=== PATIENT | male | born 1950 | race Caucasian/White ===

== ENCOUNTER 2018-12-17 13:06 | Emergency (ER) | payer MEDICARE ==
[~2018-12-17] VITALS: Ht 167.6 cm; Wt 65.8 kg
[2018-12-17] MEDS ORDERED: PANT40 PO (13:29)
[2018-12-17 13:49] LABS: BASOPHILS ABSOLUTE AUTO 0.02 K/mm3 (0.00-0.23); BASOPHILS PERCENT AUTO 0 % (0-2); EOSINOPHILS ABSOLUTE AUTO 0.11 K/mm3 (0.00-0.68); EOSINOPHILS PERCENT AUTO 2 % (0-6); Hematocrit 42.1 % (37.0-53.0); Hemoglobin 14.1 g/dL (13.5-17.5); IMMATURE GRAN ABSOLUTE AUTO 0.02 K/mm3 (0.00-0.10); IMMATURE GRAN PERCENT AUTO 0 % (0-1); LYMPHOCYTES ABSOLUTE AUTO 0.91 K/mm3 (0.84-5.20); LYMPHOCYTES PERCENT AUTO 14 % (21-46); MONOCYTES ABSOLUTE AUTO 0.81 K/mm3 (0.16-1.47); MONOCYTES PERCENT AUTO 12 % (4-13); Mean Corpuscular HGB 29.7 pg (26.0-34.0); Mean Corpuscular HGB Conc 33.5 g/dL (31.5-36.5); Mean Corpuscular Volume 89 fL (80-100); Mean Platelet Volume 8.8 fL (9.1-12.4); NEUTROPHILS ABSOLUTE AUTO 4.64 K/mm3 (1.96-9.15); NEUTROPHILS PERCENT AUTO 71 % (41-73); Platelet Count 258 K/mm3 (150-400); RDW Coefficient Variation 12.9 % (11.7-14.2); RDW Standard Deviation 42.4 fL (35.1-46.3); Red Blood Cell Count 4.74 M/mm3 (4.30-5.90); White Blood Cell Count 6.51 K/mm3 (4.00-11.30)
[2018-12-17 14:24] LABS: Alanine Aminotransfer (ALT/SGP 25 U/L (12-78); Albumin, Blood 3.6 g/dL (3.4-5.0); Albumin/Globulin Ratio 0.9 (0.8-1.8); Alk Phos 38 U/L (50-136); Anion Gap 8 mmol/L (6-16); Aspartate Aminotrans (AST/SGOT 18 U/L (12-37); Bilirubin, Total 0.3 mg/dL (0.1-1.0); Blood Urea Nitrogen 10 mg/dL (8-24); Bun/Creatinine Ratio 14.7 (12.0-20.0); CO2, Blood 25 mmol/L (21-32); Calcium, Blood 8.6 mg/dL (8.5-10.1); Chloride, Blood 105 mmol/L (98-108); Creatinine, Blood 0.68 mg/dL (0.60-1.20); Globulin, Blood 3.9 g/dL (2.2-4.0); Glomerular Filtration Rate >60 (60-); Glucose, Blood 93 mg/dL (70-99); Potassium, Blood 4.2 mmol/L (3.5-5.5); Sodium, Blood 138 mmol/L (136-145); Total Protein, Blood 7.5 g/dL (6.4-8.2)
== END 2018-12-17 15:09 | disposition home or self-care (01) ==
LOC: ER 13:06
PROVIDERS: Emergency Medicine
DX: R42 Dizziness and giddiness (principal); H74.91 Unspecified disorder of right middle ear and mastoid
CPT/HCPCS: 70450; 80053; 85025; 99284-25

== ENCOUNTER 2020-07-09 11:01 | Day surgery (SDC) | payer MEDICARE ==
[~2020-07-09] VITALS: Ht 167.6 cm; Wt 67.6 kg
[~2020-07-09 11:01] MED LIST: ATOR20 PO; Aspir 8181 MG PO; OMEP20ER PO; PANT40 PO
== END 2020-07-09 12:25 | disposition home or self-care (01) ==
LOC: ORSCSDS 11:01
PROVIDERS: Student in an Organized Health Care Education/Training Program
PROC: 0DB58ZX Excision of Esophagus, Via Natural or Artificial Opening Endoscopic, Diagnostic (ICD-10-PCS; principal; 2020-07-09 13:30)
PROC: 0DB98ZX Excision of Duodenum, Via Natural or Artificial Opening Endoscopic, Diagnostic (ICD-10-PCS; principal; 2020-07-09 13:30)
PROC: 0DB78ZX Excision of Stomach, Pylorus, Via Natural or Artificial Opening Endoscopic, Diagnostic (ICD-10-PCS; principal; 2020-07-09 13:30)
DX: R13.10 Dysphagia, unspecified (principal); K21.9 Gastro-esophageal reflux disease without esophagitis; K44.9 Diaphragmatic hernia without obstruction or gangrene; K29.70 Gastritis, unspecified, without bleeding; Z86.73 Personal history of transient ischemic attack (TIA), and cerebral infarction without residual deficits; Z86.718 Personal history of other venous thrombosis and embolism; Z79.01 Long term (current) use of anticoagulants; Z87.891 Personal history of nicotine dependence; I48.0 Paroxysmal atrial fibrillation; E78.00 Pure hypercholesterolemia, unspecified; Z79.899 Other long term (current) drug therapy
CPT/HCPCS: J2001; J2704; J7120

== ENCOUNTER 2020-07-14 12:06 | Observation (INO) | payer MEDICARE ==
[~2020-07-14] VITALS: Ht 167.6 cm; Wt 65.7 kg
[2020-07-14 17:16] LABS: International Normalized Ratio 1.02; Prothrombin Time Results 10.9 Sec (9.7-11.5)
--- NOTE | 2020-07-14 17:20 | NUR ---
Pt to SDS for foreign body with anes. Pt hx of recent stroke, unable to answer questions appropriately, but does point to arm band when asked name and date. Unable to swallow secretions, frequently spitting.
--- NOTE | 2020-07-14 17:20 | NUR ---
History, Chart, Medications and Allergies reviewed before start of procedure. Pre-Op teaching done. Pt verbalizes understanding.
--- NOTE | 2020-07-14 17:50 | NUR ---
07/14/20 [id number] Mora Christei MAC CASE WITH DR. FAN
--- NOTE | 2020-07-14 20:14 | NUR ---
PATIENT IS A NEW ADMIT ON DAY SHIFT BEFORE SHIFT CHANGE. PATIENT AXO X4 AND INDEPENDENT. EXPRESSIVE ASPHAGIA. SPOUSE PRESENT AT SHIFT CHANGE AND DAY RN REPORTS PATIENT CAME FROM SURGERY. TELEMETRY PLACED AND TECH REPORTS NSR 70. NS STARTED AT 75 mL/HR. PATIENT RESTING IN BED WATCHING TV. ON ROOM AIR. DENIES PAIN, SOB, AND N/V. CALL LIGHT IN REACH.
--- NOTE | 2020-07-14 23:10 | NUR ---
RT NOTIFIED ABOUT CONTINUOUS PULSE OXIMETRY ORDER.
--- NOTE | 2020-07-15 03:44 | NUR ---
SHIFT SUMMARY PATIENT HAD NO ACUTE CHANGES OBSERVED. AXOX 4 WITH EXPRESSIVE ASPHAGIA. INDEPENDENT IN ROOM,. RT IN TO SETUP CONTINUOUS PULSE OXIMETRY STATING 93% ON ROOM AIR. PATIENT BACK FROM SURGERY RIGHT BEFORE SHIFT CHANGE. POST OP VITALS TAKEN. NPO TO FULL LIQUID DIET IN AM. DENIES PAIN, SOB, AND N/V. PIV REMAINS INTACT. NS INFUSING AT 75mL/HR X ONE BAG. SPOUSE PRESENT AT SHIFT CHANGE. CALL LIGHT IN REACH. BED IN LOWEST POSITION. WILL CONTINUE TO MONITOR UNTIL DAY SHIFT NURSE ASSUMES CARE.
[2020-07-15] MEDS ORDERED: ONDA4ODT MM (10:48)
--- NOTE | 2020-07-15 11:46 | NUR ---
review d'c. aware needs to make f/u appts w/ pcp and gi. name put on follow up list. aware has one med at pharmacy. answer all questions. no s/s infection w/iv d'c. in w/c w/volunteer to pov and adult female
== END 2020-07-15 11:48 | disposition home or self-care (01) ==
LOC: ER 12:06 → MEDS 12:07 → ER 17:09 → MEDS 17:09 → ENPENDDIS 07-15 11:07 → MEDS 07-15 11:48
PROVIDERS: Student in an Organized Health Care Education/Training Program; ADMIT Internal Medicine
PROC: 0DC58ZZ Extirpation of Matter from Esophagus, Via Natural or Artificial Opening Endoscopic (ICD-10-PCS; principal; 2020-07-14 16:00)
DX: T18.128A Food in esophagus causing other injury, initial encounter (principal); K21.9 Gastro-esophageal reflux disease without esophagitis; E78.5 Hyperlipidemia, unspecified; Z79.01 Long term (current) use of anticoagulants; I69.320 Aphasia following cerebral infarction; I69.390 Apraxia following cerebral infarction; Z20.828 Contact with and (suspected) exposure to other viral communicable diseases; Z88.6 Allergy status to analgesic agent; Z79.899 Other long term (current) drug therapy
CPT/HCPCS: 85610; 92610; 96372; 96374; 99284; C9113; G0378; J1610; J1650; J2704; J7030; J7120; U0002

== ENCOUNTER 2021-02-05 10:07 | Emergency (ER) | payer OTHER ==
[~2021-02-05] VITALS: Ht 162.6 cm; Wt 63.5 kg
[~2021-02-05 10:07] MED LIST changes: +ONDA4ODT MM
[2021-02-05 11:44] LABS: BASOPHILS ABSOLUTE AUTO 0.04 K/mm3 (0.00-0.23); BASOPHILS PERCENT AUTO 1 % (0-2); EOSINOPHILS ABSOLUTE AUTO 0.04 K/mm3 (0.00-0.68); EOSINOPHILS PERCENT AUTO 1 % (0-6); Hematocrit 42.1 % (37.0-53.0); Hemoglobin 13.8 g/dL (13.5-17.5); IMMATURE GRAN ABSOLUTE AUTO 0.01 K/mm3 (0.00-0.10); IMMATURE GRAN PERCENT AUTO 0 % (0-1); LYMPHOCYTES ABSOLUTE AUTO 0.81 K/mm3 (0.84-5.20); LYMPHOCYTES PERCENT AUTO 15 % (21-46); MONOCYTES PERCENT AUTO 14 % (4-13); Mean Corpuscular HGB 28.5 pg (26.0-34.0); Mean Corpuscular HGB Conc 32.8 g/dL (31.5-36.5); Mean Corpuscular Volume 87 fL (80-100); Mean Platelet Volume 9.3 fL (9.1-12.4); NEUTROPHILS ABSOLUTE AUTO 3.85 K/mm3 (1.96-9.15); NEUTROPHILS PERCENT AUTO 69 % (41-73); Platelet Count 273 K/mm3 (150-400); RDW Coefficient Variation 13.9 % (11.7-14.2); RDW Standard Deviation 44.7 fL (35.1-46.3); Red Blood Cell Count 4.84 M/mm3 (4.30-5.90); White Blood Cell Count 5.55 K/mm3 (4.00-11.30)
[2021-02-05 12:10] LABS: Alanine Aminotransfer (ALT/SGP 31 U/L (12-78); Albumin, Blood 3.6 g/dL (3.4-5.0); Alk Phos 69 U/L (50-136); Anion Gap 5 mmol/L (6-16); Aspartate Aminotrans (AST/SGOT 23 U/L (12-37); Blood Urea Nitrogen 10 mg/dL (8-24); Bun/Creatinine Ratio 14.2 (12.0-20.0); CO2, Blood 26 mmol/L (21-32); Calcium, Blood 8.6 mg/dL (8.5-10.1); Chloride, Blood 105 mmol/L (98-108); Creatinine, Blood 0.71 mg/dL (0.60-1.20); Globulin, Blood 3.6 g/dL (2.2-4.0); Glomerular Filtration Rate >60 (60-); Glucose, Blood 94 mg/dL (70-99); Potassium, Blood 4.3 mmol/L (3.5-5.5); Sodium, Blood 136 mmol/L (136-145); Total Protein, Blood 7.2 g/dL (6.4-8.2); Troponin I <0.015 ng/mL (0.000-0.040)
[2021-02-05] MEDS ORDERED: MECL25 PO (13:01)
== END 2021-02-05 13:30 | disposition home or self-care (01) ==
LOC: ER 10:07
PROVIDERS: Emergency Medicine
DX: R42 Dizziness and giddiness (principal); Z79.82 Long term (current) use of aspirin; Z79.899 Other long term (current) drug therapy; Z86.73 Personal history of transient ischemic attack (TIA), and cerebral infarction without residual deficits
CPT/HCPCS: 70450; 80053; 84484; 85025; 93005; 93010; 99284-25; A9270

== ENCOUNTER 2021-03-23 21:10 | Emergency (ER) | payer OTHER ==
[~2021-03-23] VITALS: Ht 162.6 cm; Wt 68.0 kg
[~2021-03-23 21:10] MED LIST changes: +MECL25 PO
--- NOTE | 2021-03-23 23:07 | NUR ---
PT TRANSFERED TO [facility]IA [facility] FROM ER. History, Chart, Medications and Allergies reviewed before start of procedure. Lungs clear T/O to Auscultation. Patient States Post-Procedure ride home has been arranged.
[2021-03-23 23:09] LABS: SARS-Cov-2 (COVID-19) PCR, MMC NEGATIVE (NEGATIVE)
--- NOTE | 2021-03-23 23:35 | NUR ---
03/23/21 [id number] DARREL WHITMAN History, Chart, Medications and Allergies reviewed before start of procedure. 3-LEAD EKG REVIEWED WITH PHYSICIAN PRIOR TO START OF PROCEDURE. O2 VIA INTUBATION THROUGHOUT SEDATION/PROCEDURE. MONITOR INTACT WITH CONTINUOUS PULSE OXIMETRY AND INTERMITTENT BP. GENERAL ANESTHESIA WITH DR. FONTAINE.
--- NOTE | 2021-03-24 00:05 | NUR ---
HAILEY ROJO CHARTED PACU WITH PACU TRAINED HAILEY ALLISON WALKING HER THROUGH IT.
--- NOTE | 2021-03-24 00:54 | NUR ---
LATE ENTRY 0041 PT MEETS CRITERIA FOR D/C. Patient up to Ambulate independently. Gait steady. Discharge instructions reviewed with patient. Patient verbalizes understanding. Copy given to patient to take home. Discharged via wheelchair to private car for ride home.
== END 2021-03-23 22:48 | disposition other institution (70) ==
LOC: ER 21:10
PROVIDERS: Emergency Medicine
DX: R09.89 Other specified symptoms and signs involving the circulatory and respiratory systems (principal); Z86.73 Personal history of transient ischemic attack (TIA), and cerebral infarction without residual deficits; Z87.891 Personal history of nicotine dependence; Z20.822 Contact with and (suspected) exposure to COVID-19
CPT/HCPCS: 96374-59; 99284-25; A9270; J1100; J1610; J2405; J2704; J3010; J7120; U0004

== ENCOUNTER 2021-05-12 20:46 | Emergency (ER) | payer OTHER ==
[~2021-05-12] VITALS: Ht 167.6 cm; Wt 65.8 kg
== END 2021-05-13 04:35 | disposition short-term general hospital (02) ==
LOC: ER 20:46
DX: T18.128A Food in esophagus causing other injury, initial encounter (principal); Z79.899 Other long term (current) drug therapy; Z87.891 Personal history of nicotine dependence; Z86.73 Personal history of transient ischemic attack (TIA), and cerebral infarction without residual deficits
CPT/HCPCS: 36415; 96374; 99284; A9270; J1610

== ENCOUNTER 2022-06-01 06:17 | Day surgery (SDC) | payer OTHER ==
[~2022-06-01] VITALS: Ht 167.6 cm; Wt 65.0 kg
[~2022-06-01 06:17] MED LIST changes: +WARF6 PO
--- NOTE | 2022-06-01 07:40 | NUR ---
LOOP RECORDER REMOVED FROM L LOWER STERNAL AREA BY DR GALEANO. PT TOLERATED PROCEDURE WELL. CHEST DRSG CDI ON D/C. PT AND VERBALIZED UNDERSTANDING OF WRITTEN AND VERBAL D/C INST. PT AMB OUT OF THE [facility]ENTER /S DIFFICULTY.
== END 2022-06-01 07:30 | disposition home or self-care (01) ==
LOC: MHTC 06:17
DX: Z45.09 Encounter for adjustment and management of other cardiac device (principal); I48.0 Paroxysmal atrial fibrillation; Z79.01 Long term (current) use of anticoagulants; Z86.73 Personal history of transient ischemic attack (TIA), and cerebral infarction without residual deficits
CPT/HCPCS: 33286

== ENCOUNTER → 2024-09-06 | Outpatient (CLI) | payer OTHER ==
[~2024-09-06] MED LIST changes: +CYCL10 PO; +GABA100 PO
[2024-09-06 13:58] LABS: U Amphetamine Screen Not Detected; U Barbituate Screen Not Detected; U Benzodiazapine Screen Not Detected; U Buprenorphine Screen Not Detected; U Cannabinoids Screen Not Detected; U Cocaine Screen Not Detected; U Methadone Screen Not Detected; U Methamphetamine Screen Not Detected; U Opiates Screen Not Detected; U Oxycodone Screen Not Detected; U Phencyclidine Screen Not Detected
== END | disposition home or self-care (01) ==
LOC: LAB SHORT 11:45 → LAB 11:45
PROVIDERS: Family Medicine
DX: G89.4 Chronic pain syndrome (principal)

== ENCOUNTER 2024-10-25 20:29 | Emergency (ER) | payer OTHER ==
[~2024-10-25] VITALS: Ht 172.7 cm; Wt 68.5 kg
[2024-10-25 22:55] LABS: International Normalized Ratio 2.17; Prothrombin Time Results 21.9 Sec (9.7-11.5)
[2024-10-25 23:40] VITALS: BP 141/92
== END 2024-10-26 00:17 | disposition home or self-care (01) ==
LOC: ER 20:29
PROVIDERS: Student in an Organized Health Care Education/Training Program
DX: S01.01XA Laceration without foreign body of scalp, initial encounter (principal); W01.0XXA Fall on same level from slipping, tripping and stumbling without subsequent striking against object, initial encounter; E78.5 Hyperlipidemia, unspecified; Z87.891 Personal history of nicotine dependence; Z79.01 Long term (current) use of anticoagulants; Z79.899 Other long term (current) drug therapy; Z88.6 Allergy status to analgesic agent
CPT/HCPCS: 12001; 70450; 85610; 99284-25

== ENCOUNTER → 2024-10-30 | Outpatient (CLI) | payer OTHER ==
[2024-10-30 12:52] LABS: International Normalized Ratio 2.17; Prothrombin Time Results 21.9 Sec (9.7-11.5)
== END | disposition home or self-care (01) ==
LOC: LAB SHORT 12:04 → LAB 12:04
PROVIDERS: Physician Assistant
DX: Z51.81 Encounter for therapeutic drug level monitoring (principal); Z79.01 Long term (current) use of anticoagulants
CPT/HCPCS: 85610